=== PATIENT | female | born 1985 | race Caucasian/White ===

== ENCOUNTER 2020-08-18 11:10 | Observation (INO) | payer OTHER ==
[~2020-08-18] VITALS: Ht 154.9 cm; Wt 62.6 kg
[2020-08-18 11:42] VITALS: BP 99/55
== END 2020-08-18 13:25 | disposition home or self-care (01) ==
LOC: 4S 11:10
PROVIDERS: ADMIT Obstetrics & Gynecology; ATTEND Obstetrics & Gynecology
DX: Z34.93 Encounter for supervision of normal pregnancy, unspecified, third trimester (principal); Z3A.38 38 weeks gestation of pregnancy
CPT/HCPCS: 59025; 76805; 99219

== ENCOUNTER 2020-08-21 11:28 | Observation (INO) | payer OTHER ==
[2020-08-21] MEDS ORDERED: PREN-217 PO (11:29)
[2020-08-21 11:47] VITALS: BP 94/59
== END 2020-08-21 12:30 | disposition home or self-care (01) ==
LOC: 4S 11:28
PROVIDERS: ADMIT Obstetrics & Gynecology; ATTEND Obstetrics & Gynecology
DX: O36.5930 Maternal care for other known or suspected poor fetal growth, third trimester, not applicable or unspecified (principal); Z3A.39 39 weeks gestation of pregnancy
CPT/HCPCS: 59025; 99219

== ENCOUNTER 2020-08-24 10:13 | Inpatient (IN) | payer OTHER ==
[~2020-08-24] VITALS: Ht 154.9 cm; Wt 63.0 kg
[~2020-08-24 10:13] MED LIST: 0.9% SODIUM CHLORIDE 10 ML VIAL ONE; DEXAMETHASONE SOD PHOS 4 MG/ML VIAL ONE; OXYTOCIN 10 UNITS/ML VIAL IM ONE; PREN-217 PO
[2020-08-24] MEDS ORDERED: RINGERS SOLUTION,LACTATED 1,000 ML IV ONE (10:15)
[2020-08-24] MEDS ORDERED: CITRIC ACID/SODIUM CITRATE 30 ML SOLUTION UDCUP PO ONE (10:15)
[2020-08-24] MEDS ORDERED: METOCLOPRAMIDE HCL 5 MG/ML 2 ML VIAL IVP ONE (10:15)
[2020-08-24 10:48] LABS: BASOPHILS % (AUTO) 0.4 % (0.0-2.0); EOSINOPHILS % (AUTO) 0.6 % (1.0-6.0); HEMATOCRIT 34.9 % (36-46); HEMOGLOBIN 11.8 g/dL (12.0-16.0); LYMPHOCYTES % (AUTO) 18.4 % (22.0-44.0); MEAN CORPUSCULAR HEMOGLOBIN 29.9 pg (26.0-34.0); MEAN CORPUSCULAR HGB CONC 33.7 G/dL (31.0-37.0); MEAN CORPUSCULAR VOLUME 89 fL (80-100); MONOCYTES # (AUTO) 0.9 K/uL (0.1-1.0); MONOCYTES % (AUTO) 8.5 % (2.0-9.0); NEUTROPHILS % (AUTO) 72.1 % (40.0-70.0); PLATELET COUNT (AUTO) 225 K/uL (150-450); RED BLOOD CELL COUNT(AUTO) 3.94 MIL/uL (4.00-5.20); RED CELL DISTRIBUTION WIDTH 14.2 % (11.5-14.5)
[2020-08-24] MEDS ORDERED: ONDANSETRON HCL 4 MG/2 ML VIAL IVP PRN ×2 (11:00→12:00)
[2020-08-24] MEDS ORDERED: NALBUPHINE HCL 10 MG/ML VIAL IVP PRN ×2 (11:00)
[2020-08-24] MEDS ORDERED: DiphenhydrAMINE HCL 50 MG/ML VIAL IVP PRN (11:00)
[2020-08-24] MEDS ORDERED: MORPHINE SULFATE 10 MG/ML SYRINGE IVP PRN (11:00)
[2020-08-24] MEDS ORDERED: FentaNYL CITRATE PF 100 MCG/2 ML VIAL IVP PRN ×2 (11:00→12:00)
[2020-08-24] MEDS ORDERED: NALOXONE HCL 0.4 MG/ML VIAL IVP PRN (11:00)
[2020-08-24] MEDS ORDERED: BUPIVACAINE HCL/DEX-WATER/PF 0.75% 2 ML AMP ITH ONE (11:32)
[2020-08-24] MEDS ORDERED: ACETAMINOPHEN 1000 MG/ISO-OSM 100 ML IV ONE (11:32)
[2020-08-24] MEDS ORDERED: FentaNYL CITRATE PF 100 MCG/2 ML VIAL ONE (11:32)
[2020-08-24] MEDS ORDERED: MORPHINE SULFATE/PF 1 MG/ML 10 ML AMP ONE (11:32)
[2020-08-24 11:38] VITALS: BP 111/60
[2020-08-24] MEDS ORDERED: CLINDAMYCIN 600 MG/D5% WATER 50 ML IV ONE (12:15)
[2020-08-24 12:16] LABS: COVID AG,FIA SOURCE NASOPHARYNGEAL
[2020-08-24] MEDS ORDERED: ACETAMINOPHEN/CODEINE 300-30 MG TABLET PO PRN ×2 (13:30)
[2020-08-24] MEDS ORDERED: LANOLIN 7 GM OINTMENT TP PRN (13:30)
[2020-08-24] MEDS: DEXTROSE 5%-0.45% SODIUM CHL 1,000 ML IV SCH ×3 (15:44→23:15)
[2020-08-24] MEDS ORDERED: ACETAMINOPHEN 1000 MG/ISO-OSM 100 ML IV SCH (18:30)
[2020-08-24] MEDS ORDERED: OXYGEN THERAPY IH SCH ×2 (20:00)
[2020-08-25] MEDS: DEXTROSE 5%-0.45% SODIUM CHL 1,000 ML IV SCH (04:04)
[2020-08-25] MEDS: IBUPROFEN 800 MG TABLET PO SCH ×3 (07:04→19:00)
[2020-08-25] MEDS: MAGNESIUM HYDROXIDE SUSPENSION 30 ML UDCUP PO SCH ×2 (09:14→19:58)
[2020-08-26] MEDS: IBUPROFEN 800 MG TABLET PO SCH ×3 (01:05→21:04)
[2020-08-26] MEDS: MAGNESIUM HYDROXIDE SUSPENSION 30 ML UDCUP PO SCH (21:04)
[2020-08-27] MEDS: IBUPROFEN 800 MG TABLET PO SCH ×2 (04:24→10:58)
[2020-08-27] MEDS ORDERED: IBUP-2071 PO (11:17)
== END 2020-08-27 11:45 | disposition home or self-care (01) | DRG 788 ==
LOC: 4S 10:13 → OBSVTOIN 10:13
PROVIDERS: ADMIT Obstetrics & Gynecology; ATTEND Obstetrics & Gynecology
PROC: 10D00Z1 Extraction of Products of Conception, Low, Open Approach (ICD-10-PCS; principal; 2020-08-24)
DX: O69.81X0 Labor and delivery complicated by cord around neck, without compression, not applicable or unspecified (principal); O34.211 Maternal care for low transverse scar from previous cesarean delivery; O66.5 Attempted application of vacuum extractor and forceps; Z3A.39 39 weeks gestation of pregnancy; Z37.0 Single live birth; Z20.822 Contact with and (suspected) exposure to COVID-19
CPT/HCPCS: 86850; 86900; 86901; 87081; 87426; J0131; J1100; J2590; J2765; J3010; J3490; J7120